=== PATIENT | female | born 1980 | race Caucasian/White ===

== ENCOUNTER → 2016-09-27 | Outpatient (CLI) | payer BC | LOC: BMCIMAGING 12:13 | PROVIDERS: ATTEND Podiatrist Foot & Ankle Surgery | DX: M79.671 Pain in right foot (principal); M79.672 Pain in left foot; M77.41 Metatarsalgia, right foot; M77.42 Metatarsalgia, left foot ==

== ENCOUNTER → 2018-04-30 | Outpatient (CLI) | payer BC | LOC: BMCIMAGING 12:31 | PROVIDERS: ATTEND Family Medicine | DX: R05 Cough (principal) ==